=== PATIENT | female | born 1945 | race Caucasian/White ===

== ENCOUNTER 2019-02-21 09:55 | Emergency (ER) | payer OTHER ==
[~2019-02-21] VITALS: Ht 152.4 cm; Wt 48.6 kg
[2019-02-21] MEDS ORDERED: BUPROPION XL300 MG PO (11:06)
[2019-02-21] MEDS ORDERED: BAYER CHEWABLE81 MG PO (11:06)
[2019-02-21] MEDS ORDERED: NEXIUM20 MG PO (11:06)
[2019-02-21] MEDS ORDERED: LISINOPRIL10 MG PO (11:06)
[2019-02-21] MEDS ORDERED: VITAMIN D3400 UNI1 PO (11:07)
[2019-02-21] MEDS ORDERED: CO Q-10100 MG (11:07)
[2019-02-21] MEDS ORDERED: PHAZYME 125 MG125 MG PO (11:07)
[2019-02-21] MEDS ORDERED: TRAZODONE HCL150 MG PO (11:08)
[2019-02-21] MEDS ORDERED: NAMENDA10 MG PO (11:08)
[2019-02-21] MEDS ORDERED: LIPITOR40 MG PO (11:08)
[2019-02-21] MEDS ORDERED: VITAMIN E100 UNIT PO (11:09)
[2019-02-21] MEDS ORDERED: DONEPEZIL HCL10 MG PO (11:09)
[2019-02-21] MEDS ORDERED: MIRALAX17 GM PO (11:10)
[2019-02-21] MEDS ORDERED: COLACE100 MG PO (11:10)
[2019-02-21] MEDS ORDERED: FISH OIL 1,0001 CA1 PO (11:10)
[2019-02-21] MEDS ORDERED: BUTALB-APAP-CA1 EACH PO (11:11)
[2019-02-21] MEDS ORDERED: MOBIC7.5 MG PO (11:11)
[2019-02-21] MEDS ORDERED: MELATONIN5 MG PO (11:11)
[2019-02-21 11:15] LABS: BASOPHILS 0.3 % (0-2); EOSINOPHILS 1.4 % (0-7); HEMATOCRIT 38.7 % (36.0-48.0); HEMOGLOBIN 12.3 g/dL (12-16); IMMATURE GRANULOCYTES 0.1 % (0-5); LYMPHOCYTES 19.7 % (15-50); MCH 31.5 pg (26.0-34.0); MCHC 31.8 g/dL (31.0-37.0); MCV 99.2 fL (80.0-100.0); MEAN PLATELET VOLUME 9.1 fL (7.4-10.4); MONOCYTES 6.7 % (2-11); NEUTROPHILS 71.8 % (40-80); PLATELET COUNT 191 10x3/uL (130-400); RDW 12.7 % (11.5-14.5); WBC 6.9 10x3/uL (4.8-10.8)
[2019-02-21 11:27] LABS: INR 1.08 (0.85-1.17); PROTIME 13.5 SECONDS (11.6-15.0)
[2019-02-21 11:35] LABS: CALC OSMOLALITY 283 mosm/kg (275-300); CALCIUM 9.3 mg/dL (8.5-10.1); CARBON DIOXIDE 33.1 mmol/L (21.0-32.0); CHLORIDE - SERUM 106 mmol/L (98-107); CREATININE - SERUM 0.8 mg/dL (0.6-1.3); GLUCOSE 101 mg/dL (74-106); POTASSIUM - SERUM 3.8 mmol/L (3.5-5.1); SODIUM 141 mmol/L (136-145); UREA NITROGEN 20 mg/dL (7-18); eGFR NON AFRICAN AMERICAN 74 mL/min (90-120)
[2019-02-21 11:41] LABS: ALBUMIN 3.6 g/dL (3.4-5.0); ALKALINE PHOSPHATASE 75 U/L (46-116); ALT (SGPT) 29 U/L (10-68); BILIRUBIN - TOTAL 0.28 mg/dL (0.2-1.3); CKMB 1.6 U/L (0.0-3.6); CREATINE KINASE 80 UL (21-215); MAGNESIUM - SERUM 2.4 mg/dL (1.8-2.4); PROTEIN - SERUM 7.3 g/dL (6.4-8.2); TROPONIN-I < 0.017 ng/mL (0.000-0.060)
[2019-02-21 12:14] VITALS: Ht 152.4 cm; Wt 48.6 kg
[2019-02-21 13:50] VITALS: BP 132/85
--- NOTE | 2019-02-26 14:07 | CN ---
PATIENT NAME:MARCIA JUAN MEDICAL RECORD: [id number] : 41 LOCATION:.ER ADMIT DATE: ACCOUNT: [id number] CONSULTING PHYSICIAN: TITUS ROA MD REFERRING PHYSICIAN: SERVANDO JAIMES MD DATE OF CONSULTATION: 02/21/2019 DIAGNOSES: 1. Chest pain. 2. Dementia. 3. Hypertension. 4. Hyperlipidemia. HISTORY OF PRESENT ILLNESS: Mrs. Juan lives with her family at home. She possibly had chest pain overnight. She does not remember the daughter was not told about this morning when she talked to the patient, supposedly another family member was told and then they brought her here. She does not remember if she had chest pain. She is certainly not having chest pain now. Her EKG is normal. Troponin is normal. She has no cardiac history. She has risk factors of hypertension and hyperlipidemia. PHYSICAL EXAMINATION: CONSTITUTIONAL/GENERAL APPEARANCE: Well nourished, well developed, appears stated age. EYES: Lids and conjunctivae noninjected. No discharge. No pallor. ENT: Lips within normal limit. No cyanosis. No pallor. NECK: Carotid arteries, bilateral normal upstroke. No bruits. No thrills. No jugular venous pressure or distention. CERVICAL LYMPH NODES: Nontender. Nonenlarged. THYROID: Not enlarged. No nodules. CARDIOVASCULAR: Precordial exam, nondisplaced. No heaves or pericardial thrills. Rate and rhythm, regular. Heart sounds, normal S1, normal S2. No S3, no gallop, no rub. Systolic murmur, not heard. Diastolic murmur, not heard. RESPIRATORY: Respiratory effort, unlabored. Normal curvature. No thoracic deformity. No chest wall tenderness. Percussion, resonant. Auscultation, clear. No wheezes, no rales, no rhonchi. ABDOMEN: Soft, nondistended, nontender. No abdominal pain, no vomiting and normal appetite. MUSCULOSKELETAL: No joint tenderness, normal gait, normal tone. SKIN: Warm and dry. OVERALL IMPRESSION: Possible chest pain. If she did have chest pain, it does not appear that it was severe. She is currently pain free. EKG is normal. Troponin is normal. At this time, no other cardiac workup or treatment is necessary unless she has recurrent episodes of pain. TRANSINT:[id number] Voice Confirmation ID: [id number] DOCUMENT ID: [id number] CONSULT REPORT [id number] MARCIA JUAN, TITUS VELAZQUEZ at 1407 CC: [id number] DICTATION DATE: 02/21/19 1216 AUDITING CODER: 02/21/19 1228 DEP ER 02/21/19 [place] [id number] [place] [id number]
== END 2019-02-21 13:50 | disposition home or self-care (01) ==
LOC: D.ER 09:55
PROVIDERS: Family Medicine
DX: R07.9 Chest pain, unspecified (principal); I10 Essential (primary) hypertension